=== PATIENT | male | born 1975 | race African-American/Black ===

== ENCOUNTER 2017-09-24 14:40 | Inpatient (IN) | payer SELFPAY ==
[2017-09-24 15:40] LABS: Hematocrit 47.1 % (42.0-52.0); Mean Platelet Volume 6.6 fL (7.4-10.4); Red Blood Cell (RBC) Count 4.84 mill/uL (4.70-6.10); White Blood Cell (WBC) Count 3.7 thou/uL (4.8-10.8)
[2017-09-24 15:46] LABS: ALT (SGPT) 18 U/L (8-55); AST (SGOT) 40 U/L (5-34); Alkaline Phosphatase 399 U/L (40-150); Anion Gap 11 mmol/L (10-20); BUN (Urea Nitrogen) 7 mg/dL (8.9-20.6); CK (CPK) 80 U/L (30-200); Calc. Creatinine Clearance 0 mL/min (70-130); Calcium 9.4 mg/dL (7.8-10.44); Carbon Dioxide 24 mmol/L (22-29); Chloride 102 mmol/L (98-107); Estimated GFR-MDRD Greater than 90; Globulin 4.4 g/dL (2.4-3.5); Lipase 50 U/L (8-78); Protein, Total 8.3 g/dL (6.0-8.3)
--- NOTE | 2017-09-24 15:48 | RAD ---
PA AND LATERAL OF THE CHEST 09/24/17 INDICATION: Shortness of breath. FINDINGS: Cardiomegaly, midline sternotomy changes and valvular prosthesis are unchanged from the comparison. L ungs are clear. No definite pleural effusion or pneumothorax is evident. Osseous structures are uncha nged. IMPRESSION: Stable exam. No definite acute cardiopulmonary abnormality. POS: [facility]
[2017-09-24 15:50] LABS: Troponin I Less than 0.010 ng/mL (< 0.028)
[2017-09-24 16:01] LABS: Bilirubin Negative (Negative); Blood, Urine Negative (Negative); Glucose, Urine (Dipstick) Negative (Negative); Ketone, Urine Negative (Negative); Nitrite Negative (Negative); Protein, Urine (Dipstick) Negative (Neg-Trace)
[2017-09-24 16:03] LABS: Band 2 % (5-11); Neutrophil 85 % (42-75)
[2017-09-24] MEDS ORDERED: Ondansetron HCl/PF 4 MG/2 ML Vial ONE (16:43)
--- NOTE | 2017-09-24 17:05 | ULT ---
RIGHT UPPER QUADRANT ULTRASOUND: FINDINGS: The liver demonstrates heterogeneous echotexture without focal mass or intrahepatic ductal dilatation . There is free fluid consistent with ascites. The IVC and hepatic veins are dilated. The gallblad eric is contracted with thickening of the wall with no shadowing gallstones. The common duct measures 4 mm in diameter. The right kidney and pancreas are unremarkable. IMPRESSION: 1. Heterogeneous echotexture likely due to fatty infiltration of the liver. 2. Ascites. 3. Contracted gallbladder. POS: [facility]
[2017-09-24] MEDS ORDERED: Digoxin 0.5 MG/2 ML AMP SLOW IVP SCH (18:00)
[2017-09-24] MEDS ORDERED: Digoxin 0.5 MG/2 ML AMP ONE (18:25)
--- NOTE | 2017-09-24 18:45 | CT ---
EXAM: ABDOMEN CT WITH CONTRAST PELVIC CT WITH CONTRAST 09/24/17 HISTORY: Multiple complaints. Left leg pain x 3 days. Abdominal distention. Possible hernia. COMPARISON: Renal stone CT 11/12/08. TECHNIQUE: An abdomen and pelvic CT are performed with IV contrast. Enteric contrast was also administered. Marco nal reformatted images are submitted for interpretation. FINDINGS: There is a heterogeneously enhancing focus in the right aspect of the mediastinum, compatible with a markedly enlarged right atrium. Heterogeneous enhancement suggesting components of thrombus or possib le mass. There is marked dilatation of what appear to be coronary vessels. There is mass effect upon the heart with leftward deviation. There appears to be a septated hypodensity in the right aspect of the mediastinum measuring 11.1 x 5.1 cm. There is reflux of contrast into a markedly dilated inferior vena cava with patchy enhancement, possibly due to tumor thrombus. There is cirrhotic change of the liver. No obvious hepatic masses. The spleen does not appear to be large. Grossly unremarkable pancre as. Gallbladder is contracted. Symmetric enhancement of the kidneys. Bilaterally, no obstructive uropathy. There does appears to be contrast enhancement involving the left and right renal vein. Both renal veins are markedly prominent . There is extensive free fluid in the abdomen. No significant gastroesophageal or splenic varices. Que stionable mildly prominent vessels in the left abdominal mesentery. No evidence of bowel obstruction. Ileocecal junction appears to be grossly unremarkable. Suggestion o f a normal caliber appendix. Fecal material in a nondistended, nondilated colon. PELVIC CT: Free fluid in the pelvis. No mass, lymphadenopathy, free air or free fluid. Urinary bladder is unrema rkable. There is no lytic or blastic lesions in the osseous structures. IMPRESSION: 1. Markedly enlarged right atrium with what appears to be possible intra-atrial mass or thrombus . This abnormal attenuation extends into a dilated inferior vena cava. 2. Ascites. 3. Cirrhosis. 4. Consider cardiac echogram to better evaluate the aforementioned ventricular abnormality. Ther e is mass effect upon the heart with leftward deviation. There is distention of the coronary vessels. Results of the study discussed with Dr. Manning, 09/24/17 at 6:22 p.m. Code CR POS: [facility]
--- NOTE | 2017-09-24 20:19 | ULT ---
EXAM: LEFT LOWER EXTREMITY VENOUS ULTRASOUND WITH DOPPLER 09/24/17 HISTORY: Swelling. COMPARISON: None. TECHNIQUE: Tafoya scale, color flow, doppler imaging with spectral analysis performed left lower extremity venous system. FINDINGS: There is compressibility, presence of flow and augmentation in the common femoral, femoral, and popli teal vein. There is flow in the greater saphenous vein, profunda vein and posterior tibial vein. Ther e is mild soft tissue swelling. IMPRESSION: 1. No evidence of thrombus in the left lower extremity deep venous system. 2. Mild soft tissue swelling. POS: [facility]
[2017-09-24 20:31] LABS: Troponin I Less than 0.010 ng/mL (< 0.028)
[2017-09-24] MEDS ORDERED: Acetaminophen 325 MG TAB PO PRN ×2 (20:53→21:47)
[2017-09-24] MEDS ORDERED: Ondansetron HCl/PF 4 MG/2 ML Vial IVP PRN ×3 (20:53→21:47)
[2017-09-24] MEDS ORDERED: Ondansetron ODT 4 MG TAB SL PRN (20:53)
[2017-09-24 21:01] VITALS: BMI 29.9
[2017-09-24] MEDS ORDERED: Calcium Carbonate 500 MG ChewTAB PO PRN (21:47)
[2017-09-24] MEDS ORDERED: Benzonatate 100 MG CAP PO PRN (21:47)
[2017-09-24] MEDS ORDERED: Senokot 8.6 MG TAB PO PRN ×2 (21:47)
[2017-09-24] MEDS ORDERED: Loratadine 10 MG TAB PO PRN (21:47)
[2017-09-24] MEDS ORDERED: Mag-Al 1200 mg/1200 mg/30 ML UDCUP PO PRN (21:47)
[2017-09-24] MEDS ORDERED: Bisacodyl 5 MG TAB PO PRN ×2 (21:47)
[2017-09-24] MEDS ORDERED: cloNIDine 0.1 MG TAB PO PRN (21:47)
[2017-09-24] MEDS ORDERED: Diabetic Tussin 200 MG/10 ML UDCUP PO PRN (21:47)
[2017-09-24] MEDS ORDERED: Nitroglycerin 0.4 MG TAB (25 Tab Bottle) SL PRN (21:47)
[2017-09-24] MEDS ORDERED: HYDROcodone/Acetaminophen 5/325 mg Tablet PO PRN (21:47)
[2017-09-24] MEDS ORDERED: Lorazepam 1 MG TAB PO PRN (21:47)
[2017-09-24] MEDS ORDERED: hydrALAZINE 20 MG/ML VIAL SLOW IVP PRN (21:47)
[2017-09-24] MEDS ORDERED: traMADol HCl 50 MG TAB PO PRN (21:47)
[2017-09-24] MEDS ORDERED: Potassium Chloride 20 MEQ TAB PO SCH (22:00)
[2017-09-24] MEDS ORDERED: Furosemide 20 MG/2 ML VIAL SLOW IVP SCH (22:00)
[2017-09-24] MEDS ORDERED: Enoxaparin Sodium 100 MG/ML SYRINGE SC SCH (22:00)
--- NOTE | 2017-09-24 22:22 | CT ---
EXAM: NONCONTRAST HEAD CT 09/24/17 HISTORY: Stroke-like symptoms. Headache. Dizziness. Left sided weakness. COMPARISON: None. TECHNIQUE: Noncontrast head CT is performed from skull base to skull vertex. FINDINGS: No parenchymal hemorrhage. No extra-axial hematoma. No midline shift. Basilar cisterns are patent. Br ain volume, age appropriate. Cortical kelley-white matter differentiation is preserved. Ventricles and sulci are patent and symmetric. The calvarium is intact. Adequate aeration of the mast oid air cells and sinuses. IMPRESSION: No acute intracranial process. POS: [facility]
[2017-09-24 23:03] LABS: Troponin I Less than 0.010 ng/mL (< 0.028)
[2017-09-24] MEDS ORDERED: Heparin 10,000 UNITS/ 10 ML VIAL SLOW IVP SCH (23:30)
[2017-09-24] MEDS: Heparin 25,000 units/D5W 500 ML IV SCH (23:45)
[2017-09-25 01:38] LABS: Prothrombin Time 16.7 SEC (12.0-14.7)
--- NOTE | 2017-09-25 02:29 | HP ---
DATE OF ADMISSION: 09/24/2017 CHIEF COMPLAINT: Poor appetite, weight loss, malaise, abdominal pain, shortness of breath and lower extremity swelling. PRIMARY CARE PHYSICIAN: None. HISTORY OF PRESENT ILLNESS: Mr. Lowe is a 42-year-old male with past medical history of atrial fib rillation as well as history of atrial flutter, status post ablation in 2011, history of congestive h eart failure and fatty liver as well as tricuspid valve replacement with bioprosthetic valve, who pre sented to the emergency room with the above-mentioned complaints. History is mainly obtained by the patient himself, but he is a rather poor historian. Electronic medical records have been reviewed. The patient was last admitted to our facility last year in December for atrial fibrillation with rapid v entricular rate as well as a syncopal episode. At that time, he was found to have hyperbilirubinemia , elevated LFTs with ultrasound consistent with fatty liver only. He was given option of a loop daria rder placement as well as anticoagulation, but he declined both and went home without anything. He w as seen by Cardiology as well as Electrophysiology at that time. The patient has not established any primary care physician since then and has not received any medica l care. He came back to the emergency room today with multiple nonspecific complaints. His main com plaint is poor appetite. He has feeling of easy fullness despite feeling hungry at the same time. Tian chaudhari has not been able to eat much for the last 7 months. He has also noted increasing abdominal girth and abdominal discomfort as well as swelling of his ankles bilaterally. He also complains of about 2 0-pound weight loss in the last 5 or 6 months. He also complains of generalized weakness and not carmine ng able to work out. He gets easily tired and easily winded just by walking a few steps. He denies any recent illnesses otherwise. He denies any fever or chills. He denies any hematochezia, melena o r hematemesis. Upon presentation to the emergency room, his blood pressure was 131/88. He was tachycardic with a pu lse of 115 and EKG was consistent with atrial fibrillation. Further workup included a chest x-ray, w hich was stable. He was found to have elevated liver enzymes as well as a total bilirubin high. For this reason, he underwent a CT scan of the abdomen and pelvis, which showed markedly enlarged right atrium with possible intraatrial mass versus thrombus with abnormal attenuation extending into the di lated inferior vena cava. He also has ascites as well as cirrhosis. There is also mass effect upon the heart with leftward deviation. There is distention of the coronary vessels as well. He was orde red some digoxin in the emergency room, which he did not receive and was transferred to telemetry for admission for further evaluation and care. The patient denies any heavy drinking or drug abuse. He denies any history of hepatitis or HIV. He used to be a drinker, but he says that he had been incarcerated for 12 years, but he has been out for the last 14 years. He has been out of home and he is currently drinking. He says when I drink "I'v e a good time." He reports drinking once or twice a month heavily. In the emergency room, the patient has received only Zofran. PAST MEDICAL HISTORY: 1. History of atrial fibrillation. 2. History of atrial flutter, status post ablation in 2011. 3. History of bioprosthetic tricuspid valve replacement. He is actually status post 2 tricuspid cristofer ve replacements, first was likely mechanical and the second is now bioprosthetic. 4. History of faculty liver. 5. Remote history of alcohol abuse. 6. History of congestive heart failure per patient. He had a transthoracic echocardiogram done in 0 12/2015, which showed a preserved ejection fraction of 55% to 60% with normal wall motion. His right atrium was massively enlarged. PAST SURGICAL HISTORY: 1. Tricuspid valve replacement x2. 2. Atrial flutter ablation in 2011. ALLERGIES: No known medication allergies. MEDICATIONS: Currently, he is not taking any medications. FAMILY HISTORY: No significant history of premature coronary artery disease or sudden cardiac . SOCIAL HISTORY: He currently chews tobacco and drinks socially. No history of drug abuse. REVIEW OF SYSTEMS: The following complete review of systems was negative, except for those mentioned in the history and physical. Constitutional: Weight loss or gain, ability to conduct usual activities. Skin: Rash, itching. Eyes: Double vision, pain. ENT/Mouth: Nose bleeding, neck stiffness, pain, tenderness. Cardiovascular: Palpitations, dyspnea on exertion, orthopnea. Respiratory: Shortness of breath, wheezing, cough, hemoptysis, fever or night sweats. Gastrointestinal: Poor appetite, abdominal pain, heartburn, nausea, vomiting, constipation, or diarr hea. Genitourinary: Urgency, frequency, dysuria, nocturia. Musculoskeletal: Pain, swelling. Neurologic/Psychiatric: Anxiety, depression. Allergy/Immunologic: Skin rash, bleeding tendency. LABORATORY DATA: CBC shows WBC is 3.7 with 85% neutrophils, hemoglobin 14.6, platelet count of 188. Serum chemistries showed sodium of 134, potassium 3.2. Total bilirubin 4, AST 40, alkaline phosphat ase 399. Cardiac enzyme less than 0.010 for troponin x3. Creatinine kinase is normal. Ammonia 54. BNP of 118. Lipase is 50. Albumin is 3.9 with high globulin at 4.4. Urinalysis shows urobilinogen , and hepatitis and HIV panels are negative. Chest x-ray by my review has no evidence to suggest ple ural edema or infiltrate. Abdominal ultrasound done in the emergency room shows ascites, fatty infil tration of the liver and contracted gallbladder. IVC and hepatic veins are dilated. Common bile xochilt t measures [address] scan of the abdomen and pelvis done in the emergency room by my review shows mar kedly enlarged right atrium with possible thrombus or mass. There is mass effect upon the heart with leftward deviation. There appears to be a septated hypodensity in the right aspect of the mediastin um measuring 11.1 x 5.1 cm. There is IVC dilatation with patchy enhancement possibly due to tumor th rombus. Liver cirrhosis is seen. No obvious hepatic masses. No splenomegaly. Extensive ascites is also seen. PHYSICAL EXAMINATION: VITAL SIGNS: His most recent vital signs include temperature 98.2, pulse of 104, respirations 16, sa turating 92% on room air, blood pressure 119/74. GENERAL: He is sitting upright in bed. Family is at bedtime. In no acute distress, awake, alert, o riented x3. HEENT: Mucous membrane is moist. No oropharyngeal exudate or erythema. Head is normocephalic, atra umatic. Pupils are equal, reactive to light and accommodation. Extraocular movement intact. NECK: Supple without any lymphadenopathy, JVD or bruit. CHEST: Clear to auscultation without any wheezing, rales or rhonchi. He is tachycardic with irregul ar rhythm. A holosystolic murmur is heard all over the apex. No heaves or thrills. ABDOMEN: Distended with positive fluid wave. No rebound, guarding or rigidity. He is tender to pal pation mainly in the upper portions of the abdomen. No hernia palpable. EXTREMITIES: Free of any cyanosis, clubbing, or edema. NEUROLOGIC: Nonfocal. SKIN: Free of any rashes or bruises. VASCULAR: A +2 pedal pulses felt bilaterally. PSYCHIATRIC: Normal affect. IMPRESSION AND PLAN: 1. Intracardiac mass. It is unclear as to the etiology of the mass at this time. Given his history of atrial fibrillation and tricuspid valve replacement, he will be started on anticoagulation given the possibility of this being thrombosed. Heparin for cardiovascular protocol has been ordered. We will monitor serial H&H and monitor clinically for any evidence of bleach. The patient does give his tory of epistaxis. A transthoracic echo has been done. We will consult Cardiology. He will be n.p. o. after midnight at it seems like he most likely will need a transesophageal echocardiogram as well. He will be monitored on telemetry unit. Currently, he is hemodynamically stable. 2. Atrial fibrillation with rapid ventricular response. It is chronic in nature. The patient will be treated with low dose of IV Cardizem drip as well as heparin drip for anticoagulation purposes. I discussed the possibility of lifelong anticoagulation with this patient, and at this time, he seems agreeable to the possibility. 3. Inferior vena cava dilatation with history of congestive heart failure. There is a possibility o f fluid overload especially given ascites as well. The patient was given 1 dose of IV Lasix on the f evans and has had a good response to it. Currently, he is not in any respiratory distress. Echocardi ogram has been ordered as above. 4. Ascites and cirrhosis. Etiology is unclear at this time. His hepatitis panel and HIV testing is negative. Likely nonalcoholic liver disease. He does not have any gallstones either. We will repe at the LFTs in the morning and consult Gastroenterology for further workup. 5. Elevated liver enzymes, likely secondary to passive hepatic congestion from fluid overload. He h as been given a dose of diuretic, and if his blood pressure sustains with the Cardizem drip, he would benefit from repetition of the Lasix dose and starting him on chronic diuretics. We will defer the decision to Gastroenterology in the morning team. We will check a stat PT and INR. 6. History of tricuspid valve replacement. We will repeat a transthoracic echocardiogram and possib ly transesophageal echo as above. According to the patient, it is a bioprosthetic valve. 7. Hypokalemia. We will replace with potassium chloride and recheck in the morning. 8. Hyponatremia, likely secondary to third spacing of the fluid. Monitor and recheck in the morning . 9. History of atrial flutter, status post ablation in 2011. 10. Nicotine abuse. Cessation counseling done. 11. Code status: FULL CODE. 12. Deep venous thrombosis and gastrointestinal prophylaxis. The patient is currently on heparin dr cloud. We will add proton pump inhibitors as well for gastrointestinal prophylaxis. 13. Add p.r.n. medication orders and continue supportive care. DISPOSITION: The patient is currently being admitted for intracardiac mass likely thrombus as well a s fluid overload likely secondary to congestive heart failure with or without liver failure. Further management will depend upon his clinical course. Prognosis appears guarded at this time. Care was discussed with the patient and his family members including his mom. They verbalized understanding. All questions were answered.
[2017-09-25 06:25] LABS: Anion Gap 11 mmol/L (10-20); BUN (Urea Nitrogen) 9 mg/dL (8.9-20.6); Calc. Creatinine Clearance 155 mL/min (70-130); Carbon Dioxide 24 mmol/L (22-29); Chloride 104 mmol/L (98-107); Estimated GFR-MDRD Greater than 90
[2017-09-25 06:26] LABS: ALT (SGPT) 17 U/L (8-55); AST (SGOT) 38 U/L (5-34); Alkaline Phosphatase 366 U/L (40-150); Bilirubin, Direct 1.6 mg/dL (0.1-0.3); Bilirubin, Total 3.2 mg/dL (0.2-1.2); Protein, Total 7.5 g/dL (6.0-8.3)
[2017-09-25 06:45] LABS: Band 4 % (5-11); Hematocrit 42.7 % (42.0-52.0); Neutrophil 48 % (42-75); Reactive Lymphocytes 1 % (0-10); Red Blood Cell (RBC) Count 4.38 mill/uL (4.70-6.10); White Blood Cell (WBC) Count 3.8 thou/uL (4.8-10.8)
[2017-09-25] MEDS ORDERED: FLU VACC QS2017-18 36 mo. & older 0.5 ML SYRINGE IM ONE (09:00)
[2017-09-25] MEDS ORDERED: Enoxaparin Sodium 100 MG/ML SYRINGE SC SCH (09:00)
[2017-09-25] MEDS ORDERED: Non-Formulary Item 1 EACH (Cyanocobalamin (Vitamin B-12) [Vitamin B12] 2,500 MCG) PO SCH (09:00)
[2017-09-25] MEDS ORDERED: Non-Formulary Item 1 EACH (Multivitamin [Multivitamins] 1 CAP) PO SCH (09:00)
--- NOTE | 2017-09-25 11:04 | PDOC.PN ---
- Subjective Encounter Start Date: 09/25/17 Encounter Start Time: 07:30 -: old records requested/rev pt is on heparin drip, no chest pain, has dyspnea, no fever, Patient seen and examined. No new complaints. No overnight events - Objective MAR Reviewed: Yes Vital Signs & Weight: Vital Signs (12 hours) Temp Pulse Resp BP BP Pulse Ox 09/25/17 08:21 97.7 F 89 16 90 L 09/25/17 08:19 97.7 F 89 16 109/63 90 L 09/25/17 03:05 98.9 F 90 28 H 111/69 92 L 09/25/17 00:00 98.2 F 104 H 16 119/74 92 L 09/24/17 23:27 98.8 F 116 H 20 93 L 09/24/17 23:19 116 H Weight Weight 197 lb 1 oz I&O: 09/24/17 09/25/17 09/26/17 06:59 06:59 06:59 Intake Total 768.3 Output Total 760 Balance 8.3 Result Diagrams: 09/25/17 05:42 09/25/17 05:42 Radiology Reviewed by me: Yes EKG Reviewed by me: Yes Phys Exam - Physical Examination Constitutional: NAD HEENT: PERRLA, moist MMs, sclera anicteric Neck: supple, full ROM JVD+ Respiratory: no wheezing, no rales, no rhonchi Cardiovascular: no rub, irregular SM+ Gastrointestinal: soft ascites+ Musculoskeletal: pulses present trace edema+ Neurological: non-focal, normal sensation Lymphatic: no nodes Psychiatric: normal affect, A&O x 3 Skin: no rash, normal turgor Dx/Plan (1) Acute on chronic diastolic (congestive) heart failure Code(s): I50.33 - ACUTE ON CHRONIC DIASTOLIC (CONGESTIVE) HEART FAILURE Status : Acute (2) Abnormal LFTs Code(s): R79.89 - OTHER SPECIFIED ABNORMAL FINDINGS OF BLOOD CHEMISTRY Status : Acute (3) Atrial fibrillation with RVR Code(s): I48.91 - UNSPECIFIED ATRIAL FIBRILLATION Status: Acute (4) Cardiac mass Code(s): I51.89 - OTHER ILL-DEFINED HEART DISEASES Status: Suspected (5) Hypokalemia Code(s): E87.6 - HYPOKALEMIA Status: Acute (6) Hyponatremia Code(s): E87.1 - HYPO-OSMOLALITY AND HYPONATREMIA Status: Acute (7) Cirrhosis of liver with ascites Code(s): K74.60 - UNSPECIFIED CIRRHOSIS OF LIVER Status: Chronic (8) History of prosthetic tricuspid valve replacement Code(s): Z95.2 - PRESENCE OF PROSTHETIC HEART VALVE Status: Chronic Comment : now with bioprosthtic valve (9) Obesity (BMI 30.0-34.9) Code(s): E66.9 - OBESITY, UNSPECIFIED Status: Chronic (10) Tobacco abuse Code(s): Z72.0 - TOBACCO USE Status: Chronic - Plan cont current plan of care * continue cardizem drip for rate control * continue heparin drip for anticoagulation * cardiology consulted * GI consulted for abnormal LFT by admitting physician * continue diuresis * medication reviewed as below * symptomatic treatment * social work . * replace potassium Review of Systems - Review of Systems Constitutional: negative: Fever, Chills, Sweats, Weakness, Malaise, Other Respiratory: SOB with Excertion. negative: Cough, Dry, Shortness of Breath, Hemoptysis, Pleuritic Pain, Sputum, Wheezing Cardiovascular: negative: Chest Pain, Palpitations, Orthopnea, Paroxysmal Noc. Dyspnea, Edema, Light Headedness, Other Gastrointestinal: negative: Nausea, Vomiting, Abdominal Pain, Diarrhea, Constipation, Melena, Hematochezia, Other Genitourinary: negative: Dysuria, Frequency, Incontinence, Hematuria, Retention , Other Musculoskeletal: negative: Neck Pain, Shoulder Pain, Arm Pain, Back Pain, Hand Pain, Leg Pain, Foot Pain, Other Skin: negative: Rash, Lesions, Roberto, Bruising, Other - Medications/Allergies Allergies/Adverse Reactions: Allergies Allergy/AdvReac Type Severity Reaction Status Date / Time No Known Drug Allergies Allergy Verified 12/19/15 23:07 Medications: Current Medications Acetaminophen (Tylenol) 650 mg PO Q4H PRN PRN Reason: Headache/Fever or Pain Hydrocodone Bitart/Acetaminophen ([place] 5/325) 1 tab PO Q4H PRN PRN Reason: Moderate Pain (4-6) Al Hydroxide/Mg Hydroxide (Maalox) 30 ml PO Q6H PRN PRN Reason: Heartburn or Indigestion Benzonatate (Tessalon) 100 mg PO Q4H PRN PRN Reason: Cough Bisacodyl (Dulcolax) 10 mg PO DAILYPRN PRN PRN Reason: Constipation Calcium Carbonate (Tums) 1,000 mg PO Q4H PRN PRN Reason: Heartburn or Indigestion Clonidine (Catapres) 0.1 mg PO Q4H PRN PRN Reason: Systolic BP > 160 Cyanocobalamin (Vitamin B-12) 2,500 mcg PO DAILY SINDI Guaifenesin (Robitussin Sf) 200 mg PO Q4H PRN PRN Reason: Cough Hydralazine HCl (Apresoline) 10 mg SLOW IVP Q4H PRN PRN Reason: Systolic BP > 180 Diltiazem HCl 125 mg/ Sodium (Chloride) 125 mls @ 2.5 mls/hr IVPB INF SINDI; 2.5 MG/HR PRN Reason: Protocol Last Admin: 09/24/17 22:38 Dose: 125 mls Heparin Sodium/Dextrose (Heparin 25,000 Units/D5w 500 Ml) 500 mls @ 0 mls/hr IV INF SINDI; As Directed PRN Reason: Protocol Last Admin: 09/24/17 23:45 Dose: 500 mls Loratadine (Claritin) 10 mg PO DAILYPRN PRN PRN Reason: Sinus Symptoms Lorazepam (Ativan) 1 mg PO Q4H PRN PRN Reason: Anxiety/Agitation Multivitamins (Theragran) 1 tab PO DAILY SINDI Nitroglycerin (Nitrostat) 0.4 mg SL Q5MIN PRN PRN Reason: Chest Pain Ondansetron HCl (Zofran) 4 mg IVP Q6H PRN PRN Reason: Nausea/Vomiting Pantoprazole Sodium (Protonix) 40 mg PO DAILY SIDNI Senna (Senokot) 2 tab PO HSPRN PRN PRN Reason: Constipation Sodium Chloride (Flush - Normal Saline) 10 ml IVF Q12HR SINDI Sodium Chloride (Flush - Normal Saline) 10 ml IVF PRN PRN PRN Reason: Saline Flush Tramadol HCl (Ultram) 50 mg PO Q4H PRN PRN Reason: Moderate Pain (4-6)
[2017-09-25] MEDS: Furosemide 20 MG/2 ML VIAL SLOW IVP SCH (13:36)
[2017-09-25] MEDS: Cyanocobalamin (Vitamin B-12) 1,000 MCG TAB PO SCH (13:36)
[2017-09-25] MEDS: Multivit, Therapeutic 1 TAB PO SCH (13:38)
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
--- NOTE | 2017-09-25 20:42 | CON ---
DATE OF CONSULTATION: 09/25/2017 REASON FOR CONSULTATION: Ascites and possible cirrhosis. CONSULTING PHYSICIAN: Mayra Presley M.D. HISTORY OF PRESENT ILLNESS: Mr. Lowe is a 42-year-old male with the past medical history of atrial fibrillation with RVR, diastolic heart failure with prosthetic tricuspid valve surgery x2, obesity, and elevated liver enzymes, presenting with complaints of decreased appetite, weight loss, abdominal pain, increased shortness of breath, and lower extremity edema. He states that over the last 5 to 6 months, he has been having increased abdominal girth, lower extremity edema , and increased shortness of breath. He also endorses decreased appetite with early satiety with meals associated with a 20 lb weight loss, and mild GI upset characterized as lower quadrant abdominal pain characterized as a stretching/ pulling type pain, severity 2-3/10, nonradiating, with waxing and waning severity. No clear exacerbating or alleviating factors, although he did have some mild increase in pain whenever he would lay on stomach. This has progressively gotten worse over the same time period, prompting admission to the [facility]. Upon evaluation in the ER, he was noted to have increased abdominal distention, tachycardia, and a CT scan showing an intracardiac mass/ thrombus prompting admission. With routine labs that were drawn, he was also noted to have mildly elevated liver enzymes. Of note, patient denies any increased nausea, vomiting, fevers, chills, jaundice , hematemesis, melena, hematochezia, increased confusion/disorientation, odynophagia, dysphagia, diarrhea or constipation. He denies any history of hepatitis or HIV. He does report that he drinks anywhere between 3 and 6 beers per week, but with heavier prior use in the past. PAST MEDICAL HISTORY: Atrial fibrillation with RVR, diastolic heart failure with prosthetic tricuspid valve, obesity, elevated liver enzymes, remote history of alcohol abuse. PAST SURGICAL HISTORY: Tricuspid valve replacement x2 and atrial flutter ablation in 2011. FAMILY HISTORY: No GI malignancies. SOCIAL HISTORY: Positive chewing tobacco. Alcohol, drinks approximately 3 to 6 beers per week. Denies any illicit drug use. ALLERGIES: No known medical allergies. REVIEW OF SYSTEMS: A 12-system review of systems was asked with the patient and was negative except for those pertinent positives mentioned in the history and physical above. PHYSICAL EXAMINATION: VITAL SIGNS: Temperature 97.7, pulse 89, respiratory rate 16, satting 90% on 3 liters nasal cannula, blood pressure 109/63. GENERAL: The patient is resting comfortably, in no acute distress. HEENT: Pupils equal, round, reactive to light. CARDIOVASCULAR: The patient has regular rate and rhythm. A holosystolic and holodiastolic murmur is heard in the left upper sternal border and all over the apex. No heaves or thrills. ABDOMEN: Mild abdominal distention noted on inspection. Normoactive bowel sounds, soft, nontender. Positive shifting dullness. EXTREMITIES: No cyanosis or clubbing, 1+/2+ pitting edema to the mid chase bilaterally. LABORATORY DATA: CBC of 3.8, 13.4, 42.7, platelets of 186. INR 1.3. Chemistry : Sodium 135, potassium 4.3, chloride 104, carbon dioxide 24, BUN 11, creatinine 0.77, creatinine 84, AST 38, ALT 17, alkaline phosphatase 366, total bilirubin 3.2, albumin 3.7, and lipase 50. Hepatitis A negative, hepatitis B negative, hepatitis C negative, HIV negative. APRI score 0.5, FIB-4 score 2.16. IMAGING: Right upper quadrant ultrasound obtained on 09/24/2017. Liver demonstrates heterogenous echotexture without focal mass or intrahepatic ductal dilatation. There is free fluid consistent with ascites. The IVC and hepatic veins are dilated. The common bile duct measures 4 mm in diameter. Heterogenous echotexture likely due to fatty infiltration of the liver. CT abdomen and pelvis obtained on 09/24/2017, showing a heterogeneously enhancing focus in the right aspect of the mediastinum compatible with markedly enlarged right atrium. Heterogenous enhancement suggesting component of thrombus or possible mass. There is marked dilation of what appeared to be coronary vessels with a leftward deviation, mass effect upon the heart. There was also noted cirrhotic change within the liver. ASSESSMENT: The patient is a 42-year-old -[place] gentleman with a past medical history of atrial fibrillation with RVR, diastolic heart failure with prosthetic tricuspid valve surgery x2, obesity, and elevated LFTs presenting with ascites and right-sided heart failure likely contributing to the above. Congestive hepatopathy The patient is presenting with symptoms for the last 5 to 6 months characterized as increased shortness of breath, mild lower quadrant abdominal pain, increased abdominal girth, and bilateral lower extremity edema with ascites found on imaging and possible cirrhotic changes seen on imaging as well. These findings tend to lead more towards the diagnosis of cirrhosis with associated portal hypertension. However, his transaminases are relatively normal aside from a moderate cholestatic picture and also has normal albumin, INR, and platelet count. Calculation of non-invasive fibrosis markers have an indeterminate APRI and FIB-4 scores. When coupled with the above, a diagnosis of cirrhosis is less likely at this time. However, the CT scan is also showing significant dilation of both the right atrium and inferior vena cava which is more indicative of right-sided heart failure as causing congestive hepatopathy and resulting in the cholestatic picture. Further testing is needed to clarify whether or not his ascites is cardiac or hepatic in nature. PLAN: 1. We would recommend diagnostic paracentesis with paracentesis labs including albumin and total protein that would help in the calculation of a SAAG score. 2. Agree with administration of intermittent IV Lasix at this time due to probable congestive hepatopathy from diastolic heart failure and significant ascites on physical exam. 3. We would consult Cardiology Service for evaluation of right-sided heart failure if that has not been done already. 4. We will hold on any further gastrointestinal workup until after paracentesis results are known. If the SAAG ratio is consistent with portal hypertension, would proceed with full liver workup. We will continue to follow. Please call with any questions. JOHNATHAN
[2017-09-25] MEDS: Amiodarone In Dextrose,Iso-Osm 200 ML IVPB SCH (22:11)
[2017-09-25] MEDS: Heparin 25,000 units/D5W 500 ML IV SCH (22:24)
[2017-09-26] MEDS: Amiodarone In Dextrose,Iso-Osm 200 ML IVPB SCH (04:06)
[2017-09-26 05:47] LABS: Hematocrit 44.2 % (42.0-52.0)
[2017-09-26 06:07] LABS: Calc. Creatinine Clearance 147 mL/min (70-130); Estimated GFR-MDRD Greater than 90
[2017-09-26] MEDS: Furosemide 20 MG/2 ML VIAL SLOW IVP SCH ×2 (06:26→13:38)
[2017-09-26] MEDS ORDERED: Enoxaparin Sodium 100 MG/ML SYRINGE SC SCH (09:00)
--- NOTE | 2017-09-26 09:59 | PDOC.PN ---
- Subjective Encounter Start Date: 09/26/17 Encounter Start Time: 09:10 Patient seen and examined. No new complaints. No overnight events - Objective MAR Reviewed: Yes Vital Signs & Weight: Vital Signs (12 hours) Temp Pulse Resp BP BP Pulse Ox 09/26/17 07:21 96.4 F L 91 18 98/54 L 95 09/26/17 04:13 97.2 F L 85 18 96/54 L 95 09/25/17 23:45 98.7 F 92 16 116/67 96 Weight Weight 199 lb 4 oz I&O: 09/25/17 09/26/17 09/27/17 06:59 06:59 06:59 Intake Total 768.3 2350.2 Output Total 760 825 Balance 8.3 1525.2 Result Diagrams: 09/26/17 05:14 09/26/17 05:14 EKG Reviewed by me: Yes (afib) Phys Exam - Physical Examination Constitutional: NAD HEENT: PERRLA, moist MMs, sclera anicteric Neck: no JVD, supple Respiratory: no wheezing, no rales, no rhonchi Cardiovascular: no significant murmur, no rub, irregular Gastrointestinal: soft, non-tender, no distention, positive bowel sounds Musculoskeletal: no edema, pulses present Neurological: non-focal, normal sensation, moves all 4 limbs Psychiatric: normal affect, A&O x 3 Skin: no rash, normal turgor Dx/Plan (1) Acute on chronic diastolic (congestive) heart failure Code(s): I50.33 - ACUTE ON CHRONIC DIASTOLIC (CONGESTIVE) HEART FAILURE Status : Acute (2) Abnormal LFTs Code(s): R79.89 - OTHER SPECIFIED ABNORMAL FINDINGS OF BLOOD CHEMISTRY Status : Acute (3) Atrial fibrillation with RVR Code(s): I48.91 - UNSPECIFIED ATRIAL FIBRILLATION Status: Acute (4) Cardiac mass Code(s): I51.89 - OTHER ILL-DEFINED HEART DISEASES Status: Suspected (5) Hypokalemia Code(s): E87.6 - HYPOKALEMIA Status: Acute (6) Hyponatremia Code(s): E87.1 - HYPO-OSMOLALITY AND HYPONATREMIA Status: Acute (7) Cirrhosis of liver with ascites Code(s): K74.60 - UNSPECIFIED CIRRHOSIS OF LIVER Status: Chronic (8) History of prosthetic tricuspid valve replacement Code(s): Z95.2 - PRESENCE OF PROSTHETIC HEART VALVE Status: Chronic Comment : now with bioprosthtic valve (9) Obesity (BMI 30.0-34.9) Code(s): E66.9 - OBESITY, UNSPECIFIED Status: Chronic (10) Tobacco abuse Code(s): Z72.0 - TOBACCO USE Status: Chronic - Plan cont current plan of care * medication reviewed as below * symptomatic treatment * will change heparin to lovenox * continue lasix * continue amiodaron * transfer process to [facility] is unsuccessful. Review of Systems - Review of Systems Constitutional: negative: Fever, Chills, Sweats, Weakness, Malaise, Other ENT: negative: Ear Pain, Ear Discharge, Nose Pain, Nose Discharge, Nose Congestion, Mouth Pain, Mouth Swelling, Throat Pain, Throat Swelling, Other Respiratory: negative: Cough, Dry, Shortness of Breath, Hemoptysis, SOB with Excertion, Pleuritic Pain, Sputum, Wheezing Cardiovascular: negative: Chest Pain, Palpitations, Orthopnea, Paroxysmal Noc. Dyspnea, Edema, Light Headedness, Other Gastrointestinal: negative: Nausea, Vomiting, Abdominal Pain, Diarrhea, Constipation, Melena, Hematochezia, Other Genitourinary: negative: Dysuria, Frequency, Incontinence, Hematuria, Retention , Other Musculoskeletal: negative: Neck Pain, Shoulder Pain, Arm Pain, Back Pain, Hand Pain, Leg Pain, Foot Pain, Other Skin: negative: Rash, Lesions, Roberto, Bruising, Other - Medications/Allergies Allergies/Adverse Reactions: Allergies Allergy/AdvReac Type Severity Reaction Status Date / Time No Known Drug Allergies Allergy Verified 12/19/15 23:07 Medications: Current Medications Acetaminophen (Tylenol) 650 mg PO Q4H PRN PRN Reason: Headache/Fever or Pain Hydrocodone Bitart/Acetaminophen (Protem 5/325) 1 tab PO Q4H PRN PRN Reason: Moderate Pain (4-6) Last Admin: 09/26/17 00:59 Dose: 1 tab Al Hydroxide/Mg Hydroxide (Maalox) 30 ml PO Q6H PRN PRN Reason: Heartburn or Indigestion Benzonatate (Tessalon) 100 mg PO Q4H PRN PRN Reason: Cough Bisacodyl (Dulcolax) 10 mg PO DAILYPRN PRN PRN Reason: Constipation Calcium Carbonate (Tums) 1,000 mg PO Q4H PRN PRN Reason: Heartburn or Indigestion Clonidine (Catapres) 0.1 mg PO Q4H PRN PRN Reason: Systolic BP > 160 Cyanocobalamin (Vitamin B-12) 2,500 mcg PO DAILY [facility] Last Admin: 09/25/17 13:36 Dose: 2,500 mcg Enoxaparin Sodium (Lovenox) 90 mg SC 0900,2100 [facility] Last Admin: 09/26/17 09:22 Dose: Not Given Furosemide (Lasix) 20 mg SLOW IVP 0600,1400 [facility] Last Admin: 09/26/17 06:26 Dose: 20 mg Guaifenesin (Robitussin Sf) 200 mg PO Q4H PRN PRN Reason: Cough Hydralazine HCl (Apresoline) 10 mg SLOW IVP Q4H PRN PRN Reason: Systolic BP > 180 Amiodarone HCl/Dextrose (Nexterone) 200 mls @ 0 mls/hr IVPB INF [facility]; As Directed PRN Reason: Protocol Last Admin: 09/26/17 04:06 Dose: 200 mls Loratadine (Claritin) 10 mg PO DAILYPRN PRN PRN Reason: Sinus Symptoms Lorazepam (Ativan) 1 mg PO Q4H PRN PRN Reason: Anxiety/Agitation Multivitamins (Theragran) 1 tab PO DAILY [facility] Last Admin: 09/25/17 13:38 Dose: 1 tab Nitroglycerin (Nitrostat) 0.4 mg SL Q5MIN PRN PRN Reason: Chest Pain Ondansetron HCl (Zofran) 4 mg IVP Q6H PRN PRN Reason: Nausea/Vomiting Pantoprazole Sodium (Protonix) 40 mg PO DAILY [facility] Last Admin: 09/26/17 09:17 Dose: 40 mg Senna (Senokot) 2 tab PO HSPRN PRN PRN Reason: Constipation Sodium Chloride (Flush - Normal Saline) 10 ml IVF Q12HR [facility] Last Admin: 09/26/17 09:22 Dose: 10 ml Sodium Chloride (Flush - Normal Saline) 10 ml IVF PRN PRN PRN Reason: Saline Flush Last Admin: 09/26/17 06:26 Dose: 10 ml Tramadol HCl (Ultram) 50 mg PO Q4H PRN PRN Reason: Moderate Pain (4-6)
[2017-09-26] MEDS ORDERED: Heparin 25,000 units/D5W 500 ML IV SCH (11:45)
[2017-09-26] MEDS: Cyanocobalamin (Vitamin B-12) 1,000 MCG TAB PO SCH (12:08)
[2017-09-26] MEDS: Multivit, Therapeutic 1 TAB PO SCH (12:08)
--- NOTE | 2017-09-26 13:51 | PRG ---
DATE OF SERVICE: 09/26/2017 SUBJECTIVE: No events or problems overnight. This morning the patient states that he is feeling better, but continues to have right upper quadrant abdominal pain that is improved from previous. Otherwise, denies any nausea, vomiting, fevers, chills, dysphagia, odynophagia, jaundice, GI bleeding, diarrhea, constipation, or evidence of encephalopathy. OBJECTIVE: INPATIENT MEDICATIONS: Reviewed. PHYSICAL EXAMINATION: VITAL SIGNS: Temperature 97.4, pulse 93, blood pressure 116/59, respiratory rate 20, satting 96% on room air. GENERAL: The patient is resting in bed comfortably in no acute distress. CARDIOVASCULAR: The patient has an irregular rate and rhythm. A holosystolic murmur is heard in the left upper sternal border and all over the apex. No heaves or thrills. ABDOMEN: Mild abdominal distention noted upon inspection, normoactive bowel sounds, soft, nontender. Positive shifting dullness. EXTREMITIES: No cyanosis or clubbing 1+/2+ pitting edema to mid shins bilaterally. LABORATORY DATA: White blood cell 3.8, hemoglobin 13.4, hematocrit 42.7, platelets 186. Chemistry not available for review. IMAGING: No current imaging. ASSESSMENT: The patient is a 42-year-old gentleman with a past medical history of atrial fibrillation with rapid ventricular response, diastolic heart failure with prosthetic tricuspid valve surgery x2, obesity, and elevated liver function tests presenting with ascites and right-sided heart failure, likely from tricuspid valve stenosis, congestive hepatopathy. Congestive hepatopathy The patient is presenting with symptoms for the past 5-6 months, characterized as increased shortness of breath, mild lower quadrant abdominal pain, increased abdominal girth, and bilateral lower extremity edema with ascites found on imaging and on physical exam. With his mild transaminitis and significant enlargement of the right side of his heart and inferior vena cava, it lends itself more towards a diagnosis of severe tricuspid stenosis and/or right heart failure. At this time, calculation of noninvasive fibrosis markers are indeterminate with both APRI and FIB4 scores in the indeterminate range; however , when coupled with relatively normal liver function tests, a diagnosis of cirrhosis is less likely at this time. Differentiation of the origin of his ascites (between congestive heart failure and possible liver cirrhosis etiology ) would need further testing including paracentesis. However, at this time, the patient is currently in the process of being transferred to a higher level of care for evaluation related to critical tricuspid stenosis. PLAN: 1. Agree with Cardiology recommendations and transferring patient for valvular surgery and correcting severe tricuspid stenosis and possible right heart failure. 2. Would recommend diagnostic paracentesis with paracentesis labs including albumin and total protein IF the patient were to remain here and differentiation is needed to determine between congestive heart failure and portal hypertension. 3. Agree with administration of intermittent IV Lasix at this time due to diastolic heart failure. We will sign off for now. Please call with any additional questions or concerns. JOHNATHAN
[2017-09-26 16:16] VITALS: BP 105/65; TEMP 97.6
--- NOTE | 2017-09-27 07:08 | DIS ---
DATE OF ADMISSION: 09/24/2017 DATE OF DISCHARGE: 09/26/2017 PRIMARY CARE PHYSICIAN: [facility] call admission. DISCHARGE DISPOSITION: Home against medical advice. PRIMARY DISCHARGE DIAGNOSES: 1. Acute on chronic diastolic heart failure, predominantly right-sided heart failure. 2. Atrial fibrillation with rapid ventricular response. 3. Hypokalemia. 4. Abnormal LFT due to passive congestion. 5. Severe tricuspid stenosis. 6. Hyponatremia. 7. Cirrhosis of liver with ascites, likely cardiac. SECONDARY DISCHARGE DIAGNOSES: 1. Tobacco abuse disorder. 2. Obesity with BMI of 30, noncompliance with medical treatment. 3. History of tricuspid valve replacement with bioprosthetic valve. PRIMARY PROCEDURE/OPERATION: None. RADIOLOGICAL INVESTIGATION: The brain CT was negative for any acute intracranial process. Chest x-r ay was normal. Abdominal ultrasound showed cirrhosis of liver with ascites. Abdomen and pelvis CT s can showed mural thrombus versus mass in the right atrium. Echocardiography showed severe tricuspid stenosis and massively enlarged right atrium, dilated inferior vena cava. SIGNIFICANT LABORATORY DATA: Hemoglobin 13.7, PTT 75.3, creatinine 0.77. Cardiac enzymes negative. Urinalysis unremarkable. Hepatitis and HIV negative. DISCHARGE MEDICATIONS: Patient left against medical advice without any medication. CONTRAINDICATIONS: None. CODE STATUS: FULL CODE. INPATIENT CONSULTANTS: Dr. Castro was following while in hospital. TEST RESULTS PENDING ON DISCHARGE: None. ALLERGIES: No known drug allergy. DISCHARGE PLAN: Patient is discharged against medical advice without any followup. HOSPITAL COURSE: The patient is a 42-year-old male who has a long history of tricuspid valve disease and previously he had prosthetic aortic valve replacement, but he was noncompliant with treatment an d anticoagulation and that is why prosthetic valve was got thrombosed and he required another valve r eplacement at tricuspid position with bioprosthetic valve. Even after that, the patient was not taki ng medication and not following Cardiology as well as primary care physician. The patient at [facility] the hospital with right-sided heart failure. He was having increasing bilateral lower ext remity edema, weakness, ascites and elevated JVD. He was having a full blown right-sided heart failu re. He had CT of the abdomen and pelvis, which showed suspected mural thrombus versus mass in the ri ght atrium, but echocardiography did not commented about that part. He has massively enlarged right atrium and severe tricuspid stenosis. He has ascites as well as cirrhosis and that is related with cardiac cirrhosis. The patient was admitted and he was treated with heparin drip. He was required a Cardizem drip and s ubsequently amiodarone drip for rate control. He was having atrial fibrillation with rapid ventricul ar response. Cardiology was following while in hospital. We initiated transferring him to [facility], but the transfer process was unsuccessful. Cardiology wanted to continue current treatme nt and they wanted to retry for transferring Friday, but this patient decided to leave against medica l advice. While in hospital, GI was following, but they recommended paracentesis for workup of ascites, but mos t likely this is cardiac cirrhosis. The patient was seen and examined earlier today. The patient left against medical advice later on to day. Please see my progress note from that day.
== END 2017-09-26 16:57 | disposition left against medical advice (07) | DRG 292 ==
LOC: ERS 14:40 → 2NO 20:41
PROVIDERS: ADMIT Internal Medicine; ATTEND Internal Medicine
DX: I50.813 Acute on chronic right heart failure (principal); T82.857A Stenosis of other cardiac prosthetic devices, implants and grafts, initial encounter; R18.8 Other ascites; I36.0 Nonrheumatic tricuspid (valve) stenosis; E87.1 Hypo-osmolality and hyponatremia; I50.33 Acute on chronic diastolic (congestive) heart failure; K76.1 Chronic passive congestion of liver; Z53.21 Procedure and treatment not carried out due to patient leaving prior to being seen by health care provider; I48.2 Chronic atrial fibrillation; E87.6 Hypokalemia; E66.9 Obesity, unspecified; Z68.30 Body mass index [BMI] 30.0-30.9, adult; Z91.14 Patient's other noncompliance with medication regimen; F17.220 Nicotine dependence, chewing tobacco, uncomplicated
CPT/HCPCS: 36415; 70450; 71020; 74177; 76705; 80048; 80053; 80074; 80076; 81003; 82140; 82550; 82553; 82565; 83690; 83880; 84484; 85014; 85018; 85025; 85049; 85610; 85730; 87389; 93005; 93306; 93798; 96374; A4216; J0282; J1160; J1644; J1650; J1940; J2405; J7050

== ENCOUNTER 2021-08-10 23:59 | Emergency (ER) | payer SELFPAY ==
[2021-08-11 00:59] LABS: #Basophils 0.1 thou/uL (0.0-0.2); #Eosinphils 0.3 thou/uL (0.0-0.7); #Lymphocytes 1.4 thou/uL (1.20-3.40); #Monocytes 0.5 thou/uL (0.11-0.59); #Neutrophils 2.4 thou/uL (1.40-6.50); %Basophils 1.5 % (0.0-1.0); %Eosinophils 7.2 % (0.0-10.0); %Lymphocytes 29.3 % (21.0-51.0); %Monocytes 10.8 % (0.0-10.0); %Neutrophils 51.3 % (42.0-75.0); Hemoglobin 14.1 g/dL (14.0-18.0); Mean Corpuscular HGB CONC 34.3 g/dL (32.0-36.0); Mean Corpuscular Hemoglobin 32.8 pg (27.0-31.0); Mean Corpuscular Volume 95.7 fL (78.0-98.0); Mean Platelet Volume 7.3 fL (7.4-10.4); Platelet Count 160 thou/uL (130-400); RBC Distribution Width 11.3 % (11.5-14.5); Red Blood Cell (RBC) Count 4.32 mill/uL (4.70-6.10); White Blood Cell (WBC) Count 4.7 thou/uL (4.8-10.8)
[2021-08-11 01:26] LABS: ALT (SGPT) 15 U/L (8-55); AST (SGOT) 25 U/L (5-34); Albumin 4.1 g/dL (3.5-5.0); Alkaline Phosphatase 212 U/L (40-110); Anion Gap 18 mmol/L (10-20); BUN (Urea Nitrogen) 7 mg/dL (8.9-20.6); Bilirubin, Total 1.7 mg/dL (0.2-1.2); Calc. Creatinine Clearance 0 mL/min (70-130); Calcium 9.2 mg/dL (7.8-10.44); Carbon Dioxide 19 mmol/L (22-29); Chloride 102 mmol/L (98-107); Globulin 4.1 g/dL (2.4-3.5); Glucose 108 mg/dL (70-105); Lipase 37 U/L (8-78); Potassium 3.5 mmol/L (3.5-5.1); Protein, Total 8.2 g/dL (6.0-8.3); Sodium 135 mmol/L (136-145)
[2021-08-11] MEDS ORDERED: Iopamidol-370 76% 500 ML 1 ML ONE (10:59)
== END 2021-08-11 03:17 | disposition home or self-care (01) ==
LOC: ERS 23:59
DX: I07.0 Rheumatic tricuspid stenosis (principal); K74.60 Unspecified cirrhosis of liver; L72.9 Follicular cyst of the skin and subcutaneous tissue, unspecified; F17.220 Nicotine dependence, chewing tobacco, uncomplicated
CPT/HCPCS: 36415; 74177; 80053; 83690; 85025; Q9967

== ENCOUNTER 2025-07-02 20:12 | Emergency (ER) | payer OTHER, SELFPAY ==
[~2025-07-02 20:12] MED LIST: Iopamidol-370 76% 500 ML MDV (1 ML CHARGE) ONE
[2025-07-02 20:35] LABS: Bacteria/HPF None Seen HPF (None Seen); CAUTI Indications for Culture Pelvic or flank pain; Glucose, Urine (Dipstick) Normal (Negative); Leukocyte 75 Leu/uL (Negative); Protein, Urine (Dipstick) Negative (Neg-Trace); RBC/HPF 0-3 HPF (0-3); Specific Gravity, Urine 1.006 (1.002-1.036)
[2025-07-02 20:37] LABS: Urine Culture Reflex No No
[2025-07-02 20:45] LABS: #Basophils 0.05 10x3/uL (0.0-0.2); #Eosinophils 0.27 10x3/uL (0.0-0.7); #Monocytes 0.77 10x3/uL (0.11-0.59); #Neutrophils 2.89 10x3/uL (1.40-6.50); %Basophils 1.0 % (0.0-1.0); %Eosinophils 5.4 % (0.0-10.0); %Lymphocytes 20.4 % (21.0-51.0); %Monocytes 15.3 % (0.0-10.0); %Neutrophils 57.3 % (42.0-75.0); Hematocrit 35.1 % (42.0-52.0); Hemoglobin 10.6 g/dL (14.0-18.0); Mean Corpuscular Hemoglobin 27.0 pg (27.0-31.0); Mean Corpuscular Volume 89.3 fL (78.0-98.0); Platelet Count 263 10x3/uL (130-400); Red Blood Cell (RBC) Count 3.93 mill/uL (4.70-6.10); White Blood Cell (WBC) Count 5.04 10x3/uL (4.8-10.8)
[2025-07-02] MEDS ORDERED: Ketorolac Tromethamine 30 MG (1 mL) VIAL ONE (20:57)
[2025-07-02] MEDS ORDERED: Ondansetron PF 4 MG/2 ML Vial ONE (20:58)
[2025-07-02 21:00] LABS: ALT (SGPT) 19 U/L (Less than 45); AST (SGOT) 40 U/L (11-34); Albumin 3.7 g/dL (3.1-4.5); Alkaline Phosphatase 275 U/L (40-110); Anion Gap 15 mmol/L (10-20); BUN (Urea Nitrogen) 9 mg/dL (8.4-25.7); Bilirubin, Total 0.9 mg/dL (0.3-1.2); Calc. Creatinine Clearance 0 mL/min (70-130); Calcium 9.1 mg/dL (7.8-10.44); Carbon Dioxide 22 mmol/L (22-29); Chloride 103 mmol/L (98-107); Globulin 4.0 g/dL (2.4-3.5); Glucose 100 mg/dL (70-105); Potassium 3.9 mmol/L (3.5-5.1); Sodium 136 mmol/L (136-145)
[2025-07-03 00:22] LABS: Magnesium 1.9 mg/dL (1.6-2.6)
[2025-07-03] MEDS ORDERED: Magnesium 2 GM/50 ML BAG (IN WATER) ONE (02:03)
[2025-07-03] MEDS ORDERED: Metoprolol Tartrate 5 MG (5 mL) VIAL ONE (02:04)
[2025-07-03 02:24] LABS: Actual Bicarbonate (HCO3v) 24.2 mEq/L (22-28); Base Excess -1.8 mEq/L (-2.0 to +3.0); Calcium, Ionized (venous) 1.13 mmol/L (1.16-1.32); Chloride (VBG) 103 mmol/L (98-106); Hematocrit-VBG 34 % (42.0-52.0); Hemoglobin (Hb) 11.5 g/dL (13.1-17.2); Potassium (VBG) 4.25 mmol/L (3.70-5.30); Sodium 136 mmol/L (133-146)
[2025-07-03] MEDS ORDERED: Enoxaparin 100 MG (1 mL) SYRINGE ONE (03:46)
== END 2025-07-03 04:45 | disposition short-term general hospital (02) ==
LOC: ERS 20:12
DX: I51.7 Cardiomegaly (principal); I48.91 Unspecified atrial fibrillation; F17.210 Nicotine dependence, cigarettes, uncomplicated; F17.220 Nicotine dependence, chewing tobacco, uncomplicated
CPT/HCPCS: 36415; 36416; 71275; 74174; 74177; 80053; 81001; 82805; 83690; 83735; 83880; 84484; 85025; 93005; 96372; 96374; 96375; 96376; J1650; J1885; J2405; J2919; J3010; J3475; J7620; Q9967